=== PATIENT | female | born 1985 | race Caucasian/White ===

== ENCOUNTER 2018-02-28 18:26 | Emergency (ER) | payer MEDICARE ==
[2018-02-28] MEDS: DIPHTH/TET/ACEL PERTUSS (ADULT) 0.5 ML VIAL IM* (20:05)
[2018-02-28] MEDS: AMOXICILLIN/CLAV 875 MG TAB PO (20:10)
[2018-02-28] MEDS: HYDROCODONE/APAP (5/325) TAB PO (20:17)
== END 2018-02-28 21:14 | disposition home or self-care (01) ==
LOC: FTE 18:26
DX: S61.032A Puncture wound without foreign body of left thumb without damage to nail, initial encounter (principal); L08.9 Local infection of the skin and subcutaneous tissue, unspecified; W55.01XA Bitten by cat, initial encounter; Y92.89 Other specified places as the place of occurrence of the external cause; Z23 Encounter for immunization
CPT/HCPCS: 73130; 73130-LT; 90471; 90715; 99283-25

== ENCOUNTER 2018-03-01 17:05 | Emergency (ER) | payer MEDICARE ==
[2018-03-01] MEDS: SOD CHLORIDE 0.9% 500 ML IV (19:37)
[2018-03-01] MEDS: ERTAPENEM SODIUM 1 GM in SOD CHLORIDE 0.9% 100 ML IVPB (19:37)
[2018-03-01] MEDS: DEXAMETHASONE 10 MG/ML 1 ML INJ IV (19:39)
[2018-03-01] MEDS: KETOROLAC 15 MG INJ IV (20:30)
== END 2018-03-01 21:41 | disposition home or self-care (01) ==
LOC: FTE 17:05
DX: S61.432A Puncture wound without foreign body of left hand, initial encounter (principal); L08.9 Local infection of the skin and subcutaneous tissue, unspecified; W55.01XA Bitten by cat, initial encounter; Y92.9 Unspecified place or not applicable
CPT/HCPCS: 96365; 96366; 96375; 99284-25

== ENCOUNTER 2018-11-23 18:17 | Emergency (ER) | payer MEDICARE ==
[2018-11-23] MEDS: KETOROLAC 30 MG INJ IM (20:15)
[2018-11-23 20:35] LABS: ADD UMIC NO; UR ASCORBIC ACID NEGATIVE (NEGATIVE); UR BACTERIA FEW /HPF (NONE SEEN); UR BILIRUBIN (Dip) NEGATIVE (NEGATIVE); UR BLOOD (Dip) NEGATIVE (NEGATIVE); UR CLARITY SLIGHTLY CLOUDY (CLEAR); UR COLOR YELLOW (YELLOW); UR GLUCOSE (Dip) NEGATIVE (NEGATIVE); UR KETONES (Dip) NEGATIVE (NEGATIVE); UR LEUKOCYTE ESTERASE (Dip) NEGATIVE Leu/ul (NEGATIVE); UR MUCUS FEW /HPF (NONE SEEN); UR NITRITE (Dip) NEGATIVE (NEGATIVE); UR RBC 1 /HPF (0-5); UR SPECIFIC GRAVITY (Dip) 1.013 (1.003-1.030); UR SQUAMOUS EPITHELIAL CELL MANY /HPF (FEW); UR TOTAL PROTEIN (Dip) NEGATIVE (NEGATIVE); UR UROBILINOGEN (Dip) NEGATIVE (NEGATIVE); UR WBC 2 /HPF (0-5)
[2018-11-23] MEDS: CEFTRIAXONE 250 MG INJ IM (22:36)
== END 2018-11-23 22:51 | disposition home or self-care (01) ==
LOC: FTE 18:17
DX: R10.2 Pelvic and perineal pain (principal)
CPT/HCPCS: 76830; 76856; 81001; 81003; 81025; 84703; 96372; 99285-25